=== PATIENT | female | born 1950 | race Caucasian/White ===

== ENCOUNTER → 2018-07-19 | Outpatient (CLI) | payer MEDICARE, OTHER ==
[~2018-07-19] VITALS: Ht 160 cm; Wt 95.3 kg
[~2018-07-19] MED LIST: ALPR0.254 PO; ASPI-586 PO; BACL20TA PO; BISA10SU6 RC; CHOL5000 PO; CRAN400T3 PO; DANT50CA PO; DOCU100T7 PO; EST30C VG; ESTR1TAB27 PO; FLUO10CA29 PO; GBPN600T PO; GUAI600T43 PO; LEVO175T5 PO; LORA10TA7 PO; METH479P4 PO; MULT-351 PO; NAPR220C11 PO; NITR100C PO; OXYB5TAB9 PO; OXYC1TAB16 PO; URIN1STR81 MC; [UNRECOGNIZED DRUG - CODE] MC
== END | disposition home or self-care (01) ==
LOC: PREOP 14:33
PROVIDERS: ATTEND Urology
DX: Z01.818 Encounter for other preprocedural examination (principal)
CPT/HCPCS: 87081

== ENCOUNTER 2018-07-24 07:15 | Day surgery (SDC) | payer MEDICARE, OTHER ==
[~2018-07-24] VITALS: Ht 160 cm; Wt 95.3 kg
[2018-07-24] VITALS (12 sets, daily range): BP systolic 88–133; BP diastolic 36–67
[2018-07-24] MEDS ORDERED: LACTATED RINGERS 1,000 ML IV PRN (07:47)
[2018-07-24] MEDS ORDERED: CATHETER FLUSH 10 ML SYR IV PRN (08:00)
[2018-07-24] MEDS ORDERED: cefTRIAXone FOR IV USE 1,000 MG in WATER (STERILE) FOR INJECTION 10 ML IV ONE (08:00)
--- NOTE | 2018-07-24 08:13 | Progress Note-Pre Operative ---
Pre-Operative Progress Note H&P Reviewed The H&P was reviewed, patient examined and no changes noted. Date Seen by Provider: Jul 24, 2018 Time Seen by Provider: 08:12 Date H&P Reviewed: Jul 24, 2018 Time H&P Reviewed: 08:12 Pre-Operative Diagnosis: BLADDER STONES YASMIN PRESSLEY MD Jul 24, 2018 08:13
--- NOTE | 2018-07-24 08:24 | Progress Note-Post Operative ---
Post-Operative Progess Note Surgeon (s)/Shrimp Peeling Machine Tender (s) Surgeon YASMIN RPESSLEY MD Shrimp Peeling Machine Tender: NONE Pre-Operative Diagnosis BLADDER STONES Post-Operative Diagnosis SAME Procedure & Operative Findings Date of Procedure 07/24/18 Procedure Performed/Findings CYSTOLITHOTRIPSY Anesthesia Type GENERAL Estimated Blood Loss Estimated blood loss (mL): NONE Specimens/Packing Specimens Removed BLADDER STONES Packing: NONE YASMIN PRESSLEY MD Jul 24, 2018 08:24
--- NOTE | 2018-07-24 08:26 | Discharge Inst-Urology ---
Discharge Inst-Urology Patient Instructions/Follow Up Plan Please make appointment to been seen in office in 4 weeks. Increase oral fluids for 48 hours and then as needed. Diet and Activity as tolerated. If questions or concerns contact your physician Or seek help at emergency department. YASMIN PRESSLEY MD Jul 24, 2018 08:26
[2018-07-24] MEDS ORDERED: SEVOFLURANE (ULTANE) 15 ML INHAL SOLN ONE (10:01)
[2018-07-24] MEDS ORDERED: proPOfol 200 MG/20 ML (DIPRIVAN) VIAL IV ONE (10:01)
[2018-07-24] MEDS ORDERED: LIDOCAINE PF 2% 5 ML (XYLOCAINE) VIAL ONE (10:01)
[2018-07-24] MEDS ORDERED: MIDAZOLAM 2 MG/2 ML (VERSED) VIAL ONE (10:01)
[2018-07-24] MEDS ORDERED: fentaNYL INJECTION 100 MCG/2 ML AMP ONE (10:02)
[2018-07-24] MEDS ORDERED: ONDANSETRON 4 MG/2 ML (SDV) Z0FRAN ONE (10:55)
[2018-07-24] MEDS ORDERED: ONDANSETRON 4 MG/2 ML (SDV) Z0FRAN IVP PRN (11:30)
[2018-07-24] MEDS ORDERED: morphine INJ 10 MG/ML 1ML (SYR OR VIAL) IVP ONE (11:30)
[2018-07-24] MEDS ORDERED: KETOROLAC 30 MG/ML VIAL ONE (13:16)
[2018-07-24] MEDS ORDERED: KETOROLAC 30 MG/ML VIAL IM ONE (13:30)
--- NOTE | 2018-07-24 14:32 | Anesthesia-General Post-Op ---
General Patient Condition Mental Status/LOC: Same as Preop Cardiovascular: Satisfactory Nausea/Vomiting: Absent Respiratory: Satisfactory Pain: Controlled Complications: Absent Post Op Complications Complications None Follow Up Care/Instructions Patient Instructions None needed. Anesthesia/Patient Condition Patient Condition Patient is doing well, no complaints, stable vital signs, no apparent adverse anesthesia problems. No complications reported per nursing. D/C home per [facility] Criteria: Yes CARLEE SOTOMAYOR CRNA Jul 24, 2018 14:31
--- NOTE | 2018-07-25 08:32 | OPERATIVE REPORT ---
DATE OF SERVICE: 07/24/2018 PREOPERATIVE DIAGNOSIS: Bladder stones. POSTOPERATIVE DIAGNOSIS: Bladder stones. OPERATION PERFORMED: Cystolithotripsy. SURGEON: Noman Pressley MD ANESTHESIA: General. COMPLICATIONS: None. DESCRIPTION OF PROCEDURE: Under satisfactory general anesthesia, the patient in lithotomy position, genitalia were prepped and draped in the usual sterile fashion. The catheter to the suprapubic tube was clamped. Cystoscope was introduced in the bladder. There was some hyperemia of the wall and multiple bladder stones. The stones were fragmented with lithoclast and completely irrigated with the bladder free of stones. Ureteric orifices were normal with clear efflux. The stones were sent for pathology after seen by the patient and her . The suprapubic tube was unclamped. The patient tolerated the procedure and anesthesia well, and was sent to recovery room in stable condition. Job ID: [id number] DocumentID: [id number] Dictated Date: 07/24/2018 11:27:50 Certified Medical Coding Specialist Date: 07/24/2018 17:32:32 Dictated By: NOMAN PRESSLEY MD [facility]
== END 2018-07-24 14:00 | disposition home or self-care (01) ==
LOC: SDC 07:15
PROVIDERS: ATTEND Urology
DX: N21.0 Calculus in bladder (principal); N31.9 Neuromuscular dysfunction of bladder, unspecified; Z85.41 Personal history of malignant neoplasm of cervix uteri; Z86.73 Personal history of transient ischemic attack (TIA), and cerebral infarction without residual deficits; Z79.82 Long term (current) use of aspirin; Z79.899 Other long term (current) drug therapy; Z90.710 Acquired absence of both cervix and uterus

== ENCOUNTER 2019-08-15 05:38 | Outpatient (RCR) | payer MEDICARE, OTHER ==
[~2019-08-15] VITALS: Ht 160 cm; Wt 94.5 kg
[~2019-08-15 05:38] MED LIST changes: -BISA10SU6 RC; +BISA10SU8 RC; +CHOL500050 PO; +GABA-486 PO; +OXYB5TAB13 PO; -OXYB5TAB9 PO; +TRM50T PO
== END 2019-08-15 11:39 | disposition home or self-care (01) ==
LOC: PREOP 05:38
PROVIDERS: ATTEND Urology
DX: Z01.812 Encounter for preprocedural laboratory examination (principal); N21.0 Calculus in bladder; Z20.828 Contact with and (suspected) exposure to other viral communicable diseases
CPT/HCPCS: 87635

== ENCOUNTER 2019-08-20 06:31 | Day surgery (SDC) | payer MEDICARE, OTHER ==
[2019-08-20] VITALS (8 sets, daily range): BP systolic 103–155; BP diastolic 50–74
[~2019-08-20] VITALS: Ht 160 cm; Wt 94.5 kg
--- OUTSIDE RECORDS SUMMARY | 2019-08-20 06:42 | XMS REPORT | Continuity of Care Document ---
Author Organization Unknown Address Unknown Phone Unavailable Allergies Active Description Code Type Severity Reaction Onset Reported/Identified Relationship to Patient Clinical Status Yes No Known Drug Allergies [id number] Drug Allergy Unknown N/A 08/14/2019 Medications There is no data. Problems Date Dx Coded Attending Type Code Diagnosis Diagnosed By 01/19/1138 YASMIN PRESSLEY MD, Ot N21.0 CALCULUS IN BLADDER 01/19/1138 YASMIN PRESSLEY MD, Ot Z01.8 12 ENCOUNTER FOR PREPROCEDURAL LABORATORY E 01/19/1138 YASMIN PRESSLEY MD, Ot Z20.8 28 CONTACT W AND EXPOSURE TO OTH VIRAL COMM 07/20/2018 YASMIN PRESSLEY MD, Ot Z01.8 18 ENCOUNTER FOR OTHER PREPROCEDURAL EXAMIN 07/20/2018 YASMIN PRESSLEY MD, Ot Z01.8 18 ENCOUNTER FOR OTHER PREPROCEDURAL EXAMIN 07/24/2018 YASMIN PRESSLEY MD, Ot N21.0 CALCULUS IN BLADDER 07/24/2018 YASMIN PRESSLEY MD, Ot N31.9 NEUROMUSCULAR DYSFUNCTION OF BLADDER, UN 07/24/2018 YASMIN PRESSLEY MD, Ot Z79.8 2 SENIOR CARE (CURRENT) USE OF ASPIRIN 07/24/2018 YASMIN PRESSLEY MD, Ot Z79.8 99 OTHER SENIOR CARE (CURRENT) DRUG THERAPY 07/24/2018 YASMIN PRESSLEY MD, Ot Z85.4 1 PERSONAL HISTORY OF MALIGNANT NEOPLASM O 07/24/2018 YASMIN PRESSLEY MD, Ot Z86.7 3 PRSNL HX OF TIA (TIA), AND CEREB INFRC W 07/24/2018 YASMIN PRESSLEY MD, Ot Z90.7 10 ACQUIRED ABSENCE OF BOTH CERVIX AND UTER 07/30/2018 YASMIN PRESSLEY MD, Ot N21.0 CALCULUS IN BLADDER 07/30/2018 YASMIN PRESSLEY MD, Ot N31.9 NEUROMUSCULAR DYSFUNCTION OF BLADDER, UN 07/30/2018 YASMIN PRESSLEY MD Ot Z79.8 2 RN HEART (CURRENT) USE OF ASPIRIN 07/30/2018 YASMIN PRESSLEY MD Ot Z79.8 99 OTHER RN HEART (CURRENT) DRUG THERAPY 07/30/2018 YASMIN PRESSLEY MD Ot Z85.4 1 PERSONAL HISTORY OF MALIGNANT NEOPLASM O 07/30/2018 YASMIN PRESSLEY MD, Ot Z86.7 3 PRSNL HX OF TIA (TIA), AND CEREB INFRC W 07/30/2018 YASMIN PRESSLEY MD, Ot Z90.7 10 ACQUIRED ABSENCE OF BOTH CERVIX AND UTER Procedures There is no data. Results Test Result Range Methicillin resistant Staphylococcus aur eus (MRSA) screening culture - 07/19/18 15:45 MRSA SCREEN RESULT MRSA ISOLATED NRG Coronavirus SARS-CoV-2 SO 2018 - 0 07:45 Coronavirus Ab [Units/volume] in Serum Negative Negative Encounters ACCT No. Visit Date/Time Discharge Status Pt. Type Provider Facility Loc./Unit Complaint [id number] 08/15/2019 05:38:00 020 11:39:00 DIS Outpatient YASMIN PRESSLEY MD [facility] PREOP BLADDER STONE [id number] 07/24/2018 07:15:00 019 14:00:00 DIS Outpatient YASMIN PRESSLEY MD [facility] BLADDER STONE [id number] 07/19/2018 14:33:00 019 23:59:59 CLS Outpatient YASMIN PRESSLEY MD [facility] PREOP BLADDER STONE [id number] 08/20/2019 09:00:00 P EN Preadmit YASMIN PRESSLEY MD [facility] BLADDER STONE
--- NOTE | 2019-08-20 07:04 | Progress Note-Pre Operative ---
Pre-Operative Progress Note H&P Reviewed The H&P was reviewed, patient examined and no changes noted. Date Seen by Provider: Aug 20, 2019 Time Seen by Provider: 07:03 Date H&P Reviewed: Aug 20, 2019 Time H&P Reviewed: 07:03 Pre-Operative Diagnosis: H/O UTIS AND BLADDER STONES YASMIN PRESSLEY MD Aug 20, 2019 07:03
[2019-08-20] MEDS ORDERED: fentaNYL INJECTION 100 MCG/2 ML AMP ONE (07:18)
[2019-08-20] MEDS ORDERED: MIDAZOLAM 2 MG/2 ML (VERSED) VIAL ONE (07:18)
[2019-08-20] MEDS ORDERED: ONDANSETRON 4 MG/2 ML (SDV) Z0FRAN ONE (07:18)
[2019-08-20] MEDS ORDERED: SEVOFLURANE (ULTANE) 15 ML INHAL SOLN ONE ×3 (07:18→08:30)
[2019-08-20] MEDS ORDERED: proPOfol 200 MG/20 ML (DIPRIVAN) VIAL IV ONE (07:18)
[2019-08-20] MEDS ORDERED: LIDOCAINE PF 2% 5 ML (XYLOCAINE) VIAL ONE (07:18)
[2019-08-20] MEDS ORDERED: ROCURONIUM 10 MG/ML 5 ML SYRINGE IV ONE ×2 (07:18→08:30)
[2019-08-20] MEDS ORDERED: DEXAMETHASONE 10 MG/ML (DECADRON) 1 ML VIAL ONE (07:22)
[2019-08-20] MEDS ORDERED: cefTRIAXone 1,000 MG IV (ROCEPHIN) VIAL ONE (07:30)
[2019-08-20] MEDS ORDERED: WATER (STERILE) FOR INJECTION 10 ML ONE (07:30)
--- NOTE | 2019-08-20 07:31 | Progress Note-Post Operative ---
Post-Operative Progess Note Surgeon (s)/Supervisor Scenic Arts (s) Surgeon YASMIN PRESSLEY MD Supervisor Scenic Arts: NONE Pre-Operative Diagnosis H/O UTIS AND BLADDER STONES Post-Operative Diagnosis SAME Procedure & Operative Findings Date of Procedure 08/20/19 Procedure Performed/Findings CYSTOLITHOTRIPSY Anesthesia Type GENERAL Estimated Blood Loss Estimated blood loss (mL): NEGLIGIBLE Specimens/Packing Specimens Removed BLADDER STONES Packing: NONE YASMIN PRESSLEY MD Aug 20, 2019 07:31
--- NOTE | 2019-08-20 07:33 | Discharge Inst-Urology ---
Discharge Inst-Urology Reconcile Patient Problems Problems Reviewed?: Yes Final Diagnosis H/O UTIS AND BLADDER STONES Patient Instructions/Follow Up Plan/Assessment/Instructions Please make appointment to been seen in office in 4 weeks. In 48 hours, if no bleeding, may resume ASA Increase oral fluids for 48 hours and then as needed. Diet and Activity as tolerated. If questions or concerns contact your physician Or seek help at emergency department. YASMIN PRESSLEY MD Aug 20, 2019 07:33
[2019-08-20] MEDS ORDERED: LACTATED RINGERS 1,000 ML IV PRN (07:37)
[2019-08-20] MEDS ORDERED: cefTRIAXone FOR IV USE 1,000 MG in WATER (STERILE) FOR INJECTION 10 ML IV ONE (07:45)
[2019-08-20] MEDS ORDERED: ONDANSETRON 4 MG/2 ML (SDV) Z0FRAN IVP PRN (08:15)
[2019-08-20] MEDS ORDERED: morphine INJ 10 MG/ML 1ML (SYR OR VIAL) IVP ONE (08:15)
[2019-08-20] MEDS ORDERED: MEPERIDINE (DEMEROL) INJ 50 MG/ML IVP ONE (08:15)
[2019-08-20] MEDS ORDERED: ATROPINE 1.2 MG/3 ML (0.4 MG/ML) SYR ONE (08:30)
[2019-08-20] MEDS ORDERED: DOXY100C PO (09:10)
[2019-08-20] MEDS ORDERED: TRM50T PO (09:10)
--- NOTE | 2019-08-20 12:52 | OPERATIVE REPORT ---
DATE OF SERVICE: 08/20/2019 PREOPERATIVE DIAGNOSES: History of UTIs and bladder stones. POSTOPERATIVE DIAGNOSES: History of infections and bladder stones. OPERATION PERFORMED: Cystolithotripsy. SURGEON: Noman Pressley MD ANESTHESIA: General. COMPLICATIONS: None. DESCRIPTION OF PROCEDURE: Under satisfactory general anesthesia, the patient in lithotomy position, genitalia were prepped and draped in the usual sterile fashion. A suprapubic tube was clamped. Cystoscope was introduced under vision. The bladder was essentially looking fine except that she had some very small stones and a couple of bigger stones. These were dealt with cystolithotripsy using the lithoclast and all the fragments, all visible calcification was irrigated out. Ureteric orifices were clear with clear effluxes. No foreign body, bladder tumor or stone visualized. A suprapubic tube was unclamped. The patient tolerated the procedure and anesthesia well and was sent to recovery room in stable condition. Job ID: [id number] DocumentID: [id number] Dictated Date: 08/20/2019 08:25:53 Bilingual Social Worker Date: 08/20/2019 12:51:54 Dictated By: NOMAN PRESSLEY MD
--- NOTE | 2019-08-20 14:23 | Anesthesia-General Post-Op ---
General Patient Condition Mental Status/LOC: Same as Preop Cardiovascular: Satisfactory Nausea/Vomiting: Absent Respiratory: Satisfactory Pain: Controlled Complications: Absent Post Op Complications Complications None Follow Up Care/Instructions Patient Instructions None needed. Anesthesia/Patient Condition Patient Condition Patient was seen this morning after the procedure and she was doing well, no complaints, stable vital signs, no apparent adverse anesthesia problems. SHAQUILLE COVARRUBIAS DO Aug 20, 2019 14:23
== END 2019-08-20 10:15 | disposition home or self-care (01) ==
LOC: SDC 06:31
PROVIDERS: ATTEND Urology
DX: N21.0 Calculus in bladder (principal); N31.9 Neuromuscular dysfunction of bladder, unspecified; F32.9 Major depressive disorder, single episode, unspecified; E03.9 Hypothyroidism, unspecified; G62.9 Polyneuropathy, unspecified; M19.90 Unspecified osteoarthritis, unspecified site; J40 Bronchitis, not specified as acute or chronic; E66.01 Morbid (severe) obesity due to excess calories; Z68.36 Body mass index [BMI] 36.0-36.9, adult; Z79.899 Other long term (current) drug therapy; Z79.82 Long term (current) use of aspirin; Z87.440 Personal history of urinary (tract) infections; Z87.891 Personal history of nicotine dependence; Z85.038 Personal history of other malignant neoplasm of large intestine; Z90.710 Acquired absence of both cervix and uterus
CPT/HCPCS: 87081; 88300

== ENCOUNTER → 2019-08-27 | Outpatient (CLI) | payer MEDICARE, OTHER ==
[~2019-08-27] MED LIST changes: +DOXY100C PO
== END ==
LOC: LAB 11:16
PROVIDERS: ATTEND Urology
DX: Z20.828 Contact with and (suspected) exposure to other viral communicable diseases (principal)
CPT/HCPCS: 87081

== ENCOUNTER → 2022-05-02 | Outpatient (CLI) | payer MEDICARE, OTHER ==
[~2022-05-02] MED LIST changes: +ALPR.25T PO; -ALPR0.254 PO
--- NOTE | 2022-05-02 16:14 | Diagnostic Imaging Report ---
EXAMINATION: Left shoulder radiographs, 4 views. COMPARISON: None. HISTORY: 72-year-old female, left shoulder pain. FINDINGS: The humeral head is normally positioned relative to the glenoid. The glenohumeral joint space is well-maintained. There is widening of the acromioclavicular joint. There are no acromioclavicular degenerative changes. There is question of a mildly displaced fracture of the coracoid on the axillary view. IMPRESSION: 1. Widening of the acromioclavicular joint which may reflect acromioclavicular joint separation injury of uncertain exact age. Recommend correlation. 2. Questioned mildly displaced fracture of the coracoid. Recommend correlation for focal pain at this site and for history of recent injury. Dictated by: Dictated on workstation # [id number]
== END ==
LOC: LAB FS 13:23
PROVIDERS: ATTEND Nurse Practitioner
DX: M25.511 Pain in right shoulder (principal)
CPT/HCPCS: 73030